=== PATIENT | male | born 1960 | race Caucasian/White ===

== ENCOUNTER 2022-05-11 12:24 | Inpatient (IN) | payer SELFPAY ==
[~2022-05-11] VITALS: Ht 185.4 cm; Wt 99.8 kg
[2022-05-11 18:34] LABS: BASOPHILS % 0.2 % (0.0-2.0); EOSINOPHILS % 1.6 % (0.0-5.0); HEMATOCRIT. 35.4 % (42.0-52.0); HEMOGLOBIN. 11.9 g/dL (14.0-18.0); LYMPHOCYTES % 32.3 % (20.0-50.0); MEAN CORPUSCULAR HEMOGLOBIN 31.3 pg (28.0-32.0); MEAN CORPUSCULAR VOLUME 93.2 fL (80.0-94.0); MEAN PLATELET VOLUME 7.7 fl (7.4-10.4); MONOCYTES % 13.9 % (2.0-8.0); PLATELET 286 x1000/uL (130-400); RED CELL DISTRIBUTION WIDTH 13.4 % (11.6-14.6)
[2022-05-11 18:43] LABS: CHLORIDE 108 mEq/L (98-107)
[2022-05-11 18:50] LABS: ETHANOL BLOOD < 10 mg/dL
[2022-05-11 21:19] LABS: *AMPHETAMINES SCREEN URINE NEGATIVE (NEGATIVE); *BARBITURATES SCREEN URINE NEGATIVE (NEGATIVE); *BENZODIAZEPINES SCREEN URINE NEGATIVE (NEGATIVE); *COCAINE SCREEN URINE NEGATIVE (NEGATIVE); CANNABINOID URINE SCREEN NEGATIVE (NEGATIVE); METHADONE URINE SCREEN NEGATIVE (NEGATIVE); OPIATES URINE SCREEN NEGATIVE (NEGATIVE); PHENCYCLIDINE URINE SCREEN NEGATIVE (NEGATIVE)
[2022-05-12] MEDS ORDERED: HALOPERIDOL LACTATE 5MG/ML VIAL IM STA (00:06)
[2022-05-12] MEDS ORDERED: DIPHENHYDRAMINE 50MG/ML VIAL IM STA (00:06)
[2022-05-12] MEDS ORDERED: MIDAZOLAM HCL 2 MG/2 ML VIAL IM ONE (00:15)
[2022-05-12 02:40] LABS: CLARITY URINE CLEAR (CLEAR); COLOR URINE YELLOW (YELLOW); KETONES URINE NEGATIVE (NEGATIVE); LEUKOCYTE ESTERASE URINE NEGATIVE (NEGATIVE); NITRITE URINE NEGATIVE (NEGATIVE); OCCULT BLOOD URINE NEGATIVE (NEGATIVE); PROTEIN URINE NEGATIVE (NEGATIVE)
[2022-05-12] MEDS: MULTIVITAMINS,THER W-MINERALS TABLET PO SCH (09:00)
[2022-05-12] MEDS ORDERED: DOCUSATE SODIUM 100MG CAPSULE PO PRN (09:00)
[2022-05-12] MEDS ORDERED: GUAIFENESIN 200MG/10ML SUGAR FREE UDC PO PRN (09:00)
[2022-05-12] MEDS ORDERED: MAGNESIUM/ALUMINUM HYDROXIDE/SIMETHICONE 30ML UDC PO PRN (09:00)
[2022-05-12] MEDS ORDERED: ONDANSETRON HCL 4MG/2ML INJ IV PRN (09:00)
[2022-05-12] MEDS: THIAMINE HCL 100MG TABLET PO SCH (09:00)
[2022-05-12] MEDS ORDERED: ACETAMINOPHEN 325MG TABLET PO PRN (09:00)
[2022-05-12 10:33] VITALS: BP 134/71
[2022-05-12 11:39] VITALS: BP 136/72
[2022-05-12 15:40] VITALS: BP 134/74
[2022-05-13] MEDS: THIAMINE HCL 100MG TABLET PO SCH (08:48)
[2022-05-13] MEDS: MULTIVITAMINS,THER W-MINERALS TABLET PO SCH (08:48)
[2022-05-14] MEDS: THIAMINE HCL 100MG TABLET PO SCH (08:37)
[2022-05-14] MEDS: MULTIVITAMINS,THER W-MINERALS TABLET PO SCH (08:37)
[2022-05-14] MEDS: HALOPERIDOL LACTATE 5MG/ML VIAL IM PRN (14:23)
[2022-05-15] MEDS: THIAMINE HCL 100MG TABLET PO SCH (09:00)
[2022-05-15] MEDS: MULTIVITAMINS,THER W-MINERALS TABLET PO SCH (09:00)
[2022-05-15] MEDS: HALOPERIDOL LACTATE 5MG/ML VIAL IM PRN (16:33)
[2022-05-16] MEDS: MULTIVITAMINS,THER W-MINERALS TABLET PO SCH (09:00)
[2022-05-16] MEDS: THIAMINE HCL 100MG TABLET PO SCH (09:00)
[2022-05-16] MEDS: HALOPERIDOL LACTATE 5MG/ML VIAL IM PRN (12:53)
[2022-05-16] MEDS ORDERED: LORAZEPAM 1MG TABLET PO PRN (20:00)
[2022-05-17] MEDS: THIAMINE HCL 100MG TABLET PO SCH (09:00)
[2022-05-17] MEDS: MULTIVITAMINS,THER W-MINERALS TABLET PO SCH (09:00)
[2022-05-17 12:00] VITALS: BP 135/66
[2022-05-17 16:00] VITALS: BP 123/65
[2022-05-17 20:00] VITALS: BP 140/76
[2022-05-18 04:00] VITALS: BP 137/81
[2022-05-18] MEDS: MULTIVITAMINS,THER W-MINERALS TABLET PO SCH (09:00)
[2022-05-18] MEDS: THIAMINE HCL 100MG TABLET PO SCH (09:00)
[2022-05-18 12:00] VITALS: BP 137/63
[2022-05-19 04:00] VITALS: BP 133/66
[2022-05-19] MEDS: MULTIVITAMINS,THER W-MINERALS TABLET PO SCH (09:00)
[2022-05-19] MEDS: THIAMINE HCL 100MG TABLET PO SCH (09:00)
[2022-05-19] MEDS: HALOPERIDOL LACTATE 5MG/ML VIAL IM PRN (15:39)
[2022-05-20] MEDS: MULTIVITAMINS,THER W-MINERALS TABLET PO SCH (09:00)
[2022-05-20] MEDS: THIAMINE HCL 100MG TABLET PO SCH (09:00)
[2022-05-20 12:00] VITALS: BP 128/63
[2022-05-20] MEDS: HALOPERIDOL LACTATE 5MG/ML VIAL IM PRN (21:28)
[2022-05-21 08:00] VITALS: BP 135/87
[2022-05-21] MEDS: MULTIVITAMINS,THER W-MINERALS TABLET PO SCH (08:47)
[2022-05-21] MEDS: THIAMINE HCL 100MG TABLET PO SCH (08:47)
[2022-05-21] MEDS: OLANZAPINE 5MG TABLET PO SCH ×2 (11:00→14:35)
[2022-05-21] MEDS: HALOPERIDOL LACTATE 5MG/ML VIAL IM PRN (14:32)
[2022-05-22] MEDS: HALOPERIDOL LACTATE 5MG/ML VIAL IM PRN ×2 (07:12→20:12)
[2022-05-22] MEDS: OLANZAPINE 5MG TABLET PO SCH ×2 (07:15→16:33)
[2022-05-22] MEDS: MULTIVITAMINS,THER W-MINERALS TABLET PO SCH (08:35)
[2022-05-22] MEDS: THIAMINE HCL 100MG TABLET PO SCH (08:35)
[2022-05-22 08:44] VITALS: BP 122/49
[2022-05-22 11:53] VITALS: BP 148/73
[2022-05-23 08:00] VITALS: BP 115/44
[2022-05-23] MEDS: OLANZAPINE 5MG TABLET PO SCH ×2 (09:42→16:40)
[2022-05-23] MEDS: THIAMINE HCL 100MG TABLET PO SCH (09:42)
[2022-05-23] MEDS: MULTIVITAMINS,THER W-MINERALS TABLET PO SCH (09:42)
[2022-05-23 12:00] VITALS: BP 128/66
[2022-05-23] MEDS: HALOPERIDOL LACTATE 5MG/ML VIAL IM PRN (19:31)
[2022-05-24 08:00] VITALS: BP 119/44
[2022-05-24] MEDS: MULTIVITAMINS,THER W-MINERALS TABLET PO SCH (11:09)
[2022-05-24] MEDS: OLANZAPINE 5MG TABLET PO SCH ×2 (11:09→18:01)
[2022-05-24] MEDS: THIAMINE HCL 100MG TABLET PO SCH (11:09)
[2022-05-24] MEDS: HALOPERIDOL LACTATE 5MG/ML VIAL IM PRN ×3 (11:09→23:54)
[2022-05-24 12:00] VITALS: BP 171/88
[2022-05-24 16:00] VITALS: BP 127/55
[2022-05-24 20:00] VITALS: BP 125/82
[2022-05-25] VITALS: BP 130/43
[2022-05-25 04:00] VITALS: BP 119/50
[2022-05-25] MEDS: OLANZAPINE 5MG TABLET PO SCH ×2 (09:00→17:00)
[2022-05-25] MEDS: THIAMINE HCL 100MG TABLET PO SCH (09:00)
[2022-05-25] MEDS: MULTIVITAMINS,THER W-MINERALS TABLET PO SCH (09:00)
[2022-05-25] MEDS: HALOPERIDOL LACTATE 5MG/ML VIAL IM PRN ×2 (09:13→20:04)
[2022-05-25 20:00] VITALS: BP 136/83
[2022-05-26] MEDS: HALOPERIDOL LACTATE 5MG/ML VIAL IM PRN ×2 (02:53→10:42)
[2022-05-26 04:00] VITALS: BP 119/59
[2022-05-26] MEDS: OLANZAPINE 5MG TABLET PO SCH ×2 (08:32→17:19)
[2022-05-26] MEDS: THIAMINE HCL 100MG TABLET PO SCH (08:32)
[2022-05-26] MEDS: MULTIVITAMINS,THER W-MINERALS TABLET PO SCH (08:32)
[2022-05-26 12:00] VITALS: BP 112/79
[2022-05-27] MEDS: MULTIVITAMINS,THER W-MINERALS TABLET PO SCH (08:32)
[2022-05-27] MEDS: THIAMINE HCL 100MG TABLET PO SCH (08:32)
[2022-05-27] MEDS: OLANZAPINE 5MG TABLET PO SCH ×2 (08:32→16:42)
[2022-05-27] MEDS: HALOPERIDOL LACTATE 5MG/ML VIAL IM PRN ×2 (08:32→16:42)
[2022-05-27 20:15] VITALS: BP 105/52
== END 2022-05-27 20:41 | DRG 52 ==
LOC: ER 12:51 → EDBD 05-12 02:34 → 8WST 05-12 02:34 → ENRESERV 05-12 07:10 → 6EST 05-22 13:29
PROVIDERS: ADMIT Hospitalist; ATTEND Hospitalist
DX: G93.49 Other encephalopathy (principal); D64.9 Anemia, unspecified; Z20.822 Contact with and (suspected) exposure to COVID-19; Z59.00 Homelessness unspecified; Z78.1 Physical restraint status
CPT/HCPCS: 36415; 71045; 80048; 80305; 80320; 81003; 85025; 87426; 97161; 99285; G0378; J1200; J1630; J2250; G0480